=== PATIENT | female | born 1960 | race Caucasian/White ===

== ENCOUNTER → 2017-03-02 | Outpatient (REF) | payer BC ==
[2017-03-02 17:39] LABS: BLOOD UREA NITROGEN 12 MG/DL (7-18); GLOMERULAR FILTRATION RATE > 60.0 (>51)
== END ==
LOC: M LABDRAW1 15:48
PROVIDERS: ATTEND Physical Medicine & Rehabilitation
DX: M51.26 Other intervertebral disc displacement, lumbar region (principal)

== ENCOUNTER → 2017-03-25 | Outpatient (CLI) | payer BC ==
--- NOTE | 2017-03-25 14:33 | REP ---
Whole body radionuclide bone scan: The studies performed with intravenous injection of 21 mCi of technetium 99m labeled MDP. There are no comparison studies. Whole body imaging is performed. This is accompanied by oblique views of the ribs and pelvis and lateral views of the calvarium, knees and ankles. There is no abnormal calvarial uptake. There are small foci of slightly increased uptake at the costovertebral junctions of the approximate 8th and 9th ribs on the right and in the right pedicle of the approximate L1 vertebra. There is a degenerative pattern of uptake in the shoulders. No unusual uptake in the pelvis or hips. There is a small focus of uptake in the right knee , possibly in the patella, likely degenerative. There is a degenerative pattern of uptake in the feet. There is a radiolabeling of the bladder. There is uptake in the pubic symphysis. Impression: There are small foci of slightly increased uptake at the costovertebral junctions of the approximate 8th and 9th ribs on the right and in the right pedicle of the approximate L1 vertebra. There is a degenerative pattern of uptake in the shoulders and sternoclavicular joints bilaterally. There is a small focus of uptake in the right knee, likely degenerative. There is a degenerative pattern of uptake in the feet bilaterally. There is uptake in the pubic symphysis. Signed by Jasvir Zamora MD 03/25/2017 02:24 P
== END ==
LOC: M RAD 10:09
PROVIDERS: ATTEND Physician Assistant
DX: M51.16 Intervertebral disc disorders with radiculopathy, lumbar region (principal)

== ENCOUNTER 2017-06-06 09:51 | Inpatient (IN) | payer BC ==
--- NOTE | 2017-06-01 06:42 | HPE ---
DATE OF ADMISSION: 06/06/2017 CHIEF COMPLAINT: Low back pain and radiculopathy with spinal stenosis. HISTORY OF PRESENT ILLNESS: This is a pleasant 57-year-old female with progressively worsening low back pain and left lower extremity myelopathy. She has failed to improve with conservative treatment. She is currently wearing an ankle-foot orthosis (AFO) on her ankle on the left. She has elected for surgery for her continued symptoms. She has pain with weightbearing activities and her activities of daily living. Nerve conduction studies reflected severe subacute L5 radiculopathy and more moderate S1 radiculopathy on the left side. She has consented for unilateral laminectomy on the left of L4, L5, and S1 with decompression of the canal and lateral recess at L4 and L5 and L5-S1 by Dr. Dmitry Velasco. Medical optimization was performed by Dr. Jem Baptiste. ALLERGIES: LATEX. CURRENT MEDICATIONS: - Toujeo Solostar 115 units at bedtime - atorvastatin calcium 20 mg once a day - metformin HCL ER 1000 mg one twice a day - Lexapro 20 mg once a day - acetaminophen 500 mg two by mouth every six hours as needed PAST MEDICAL HISTORY: Includes diabetes, hypertension and high cholesterol. PAST SURGICAL HISTORY: Includes cyst removal from her left foot, cholecystectomy, cyst removal from the left wrist, and a right rotator cuff repair. 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 Does not smoke or drink. FAMILY HISTORY: Noncontributory. REVIEW OF SYSTEMS: This patient denies chest pain, heart palpitations, cough, wheezing, difficulty breathing and shortness of breath. She denies abdominal pain, nausea, vomiting, diarrhea or constipation. She denies recent upper respiratory infection or urinary tract infection symptoms. She does complain of persistent pain in her back and weakness in her left leg. PHYSICAL EXAMINATION: GENERAL: She is well-nourished, well-developed in no acute distress, alert female patient. She walks with a significant limp favoring the left lower extremity. She uses an AFO. VITAL SIGNS: She is 4 feet 11, weighs 165 pounds, with a temperature of 97.9, blood pressure 140/86, pulse of 76 and respirations of 12. NECK: Was supple without adenopathy or jugular venous distension. There were no carotid bruits appreciated upon auscultation. LUNGS: Clear to auscultation without rales or wheeze. HEART: Regular rate and rhythm. ABDOMEN: Bowel sounds were present. BACK: Inspection of the back revealed intact skin without erythema, edema or ecchymosis. There were no step-offs. LABORATORY DATA: None taken IMPRESSION: Symptomatic degenerative disc disease, spondylosis and spinal stenosis with radiculopathy and myelopathy the left lower extremity. PLAN The patient is consented for a left unilateral laminectomy at L4, L5 and S1, with decompression of the canal and lateral recess of L4-5 and L5-S1 with retrieval of any disc material if able at L5-S1. This will be performed by Dr. Dmitry Velasco.
[~2017-06-06] VITALS: Ht 149.9 cm; Wt 75.0 kg
[2017-06-06] MEDS: ATORVASTATIN 20 MG TAB PO SCH (09:00)
[2017-06-06] MEDS: ESCITALOPRAM OXALATE 10 MG TAB (LEXAPRO) PO SCH (09:00)
[~2017-06-06 09:51] MED LIST: INSUHUMDS SC; LEXA1TAB PO; LOSA100T5 PO; METF10004 PO; TOUJ1.2I SC; TYLE325T5 PO; VASC1CAP2 PO
[2017-06-06] MEDS ORDERED: CelecoXIB (CeleBREX) 100 MG CAP PO ONE (10:15)
[2017-06-06] MEDS ORDERED: LIDOCAINE 1% MDV 20ML VIAL SC PRN (10:15)
[2017-06-06] MEDS ORDERED: PERCOCET 5MG/325MG TAB PO ONE (10:15)
[2017-06-06] MEDS ORDERED: LR 1,000 ML IV ONE (10:15)
[2017-06-06] MEDS ORDERED: ONDANSETRON 4MG/2ML VIAL (J2405) As Ordered ONE (12:07)
[2017-06-06] MEDS ORDERED: fentaNYL 250 MCG/5 ML INJECTION (J3010) As Ordered ONE (12:07)
[2017-06-06] MEDS ORDERED: LIDOCAINE 2% INJ 100 MG/5 ML SDV (FOR ANES.) As Ordered ONE (12:07)
[2017-06-06] MEDS ORDERED: PROPOFOL 200 MG/20 ML VIAL As Ordered ONE (12:07)
[2017-06-06] MEDS ORDERED: ROCURONIUM BROMIDE 50 MG/5 ML VIAL/SYRINGE As Ordered ONE (12:07)
[2017-06-06] MEDS ORDERED: dexameTHASONE 4 MG/ML 1ML VIAL (J1100) As Ordered ONE (12:07)
[2017-06-06] MEDS ORDERED: MIDAZOLAM INJ 2 MG/2 ML VIAL (J2250) As Ordered ONE (12:08)
[2017-06-06] MEDS ORDERED: THROMBIN SOLN 20,000 UNITS KIT As Ordered ONE (13:40)
[2017-06-06] MEDS ORDERED: BACITRACIN PWD 50,000 UNITS VIAL As Ordered ONE (13:40)
[2017-06-06] MEDS ORDERED: BUPIVACAINE/EPIN 0.25% 30 ML VIAL As Ordered ONE (13:40)
[2017-06-06] MEDS ORDERED: PHENYLephrine HCL 500 MCG/5 ML (100MCG/ML) SYRINGE (J2370) As Ordered ONE (16:03)
[2017-06-06] MEDS ORDERED: GLYCOPYRROLATE INJ 0.2 MG/ML 2 ML VIAL As Ordered ONE (16:03)
[2017-06-06] MEDS ORDERED: ePHEDrine SULFATE 25 MG/5 ML(5MG/ML) SYRINGE As Ordered ONE (16:03)
[2017-06-06] MEDS ORDERED: HYDROmorphone HCL 2 MG/ML 1ML VIAL (J1170) As Ordered ONE (16:03)
[2017-06-06] MEDS ORDERED: NEOSTIGMINE 1MG/ML 5 ML SYRINGE (J2710) As Ordered ONE (16:03)
[2017-06-06] MEDS ORDERED: PHENYLEPHRINE INJ 10MG/ML VIAL (J2370) As Ordered ONE (16:21)
--- NOTE | 2017-06-06 17:35 | REP ---
LUMBAR SPINE, ONE VIEW: HISTORY: Spinal surgery. A single portable lateral radiograph was obtained. A metal probe is present overlying the neural arch at the L5-S1 level. Signed by Mike Butler MD 06/06/2017 06:18 P
[2017-06-06] MEDS ORDERED: LR 1,000 ML IV SCH (18:00)
[2017-06-06] MEDS ORDERED: MORPHINE 2 MG/ML 1ML SYRINGE IV PRN ×2 (18:00)
[2017-06-06] MEDS ORDERED: PERCOCET 5MG/325MG TAB PO PRN ×2 (18:00)
[2017-06-06] MEDS ORDERED: ONDANSETRON 4MG/2ML VIAL (J2405) IV PRN ×2 (18:00)
[2017-06-06] MEDS ORDERED: fentaNYL 100 MCG/2 ML INJECTION (J3010) IV PRN (18:00)
[2017-06-06] MEDS ORDERED: HYDROmorphone HCL 1 MG/ML SYRINGE (J1170) IV PRN (18:00)
[2017-06-06] MEDS ORDERED: MEPERIDINE INJ 25 MG/ML VIAL (J2175) IV PRN (18:00)
[2017-06-06 18:32] VITALS: BP 156/69
[2017-06-06] MEDS ORDERED: ACETAMINOPHEN TAB 650MG DOSE (2X325MG) PO PRN (19:00)
[2017-06-06 20:00] VITALS: BP 158/70
[2017-06-06] MEDS ORDERED: HumaLOG INSULIN (NovoLOG) PER UNIT SC SCH (21:00)
[2017-06-06] MEDS: D5W/0.45% SODIUM CHLORIDE 1,000 ML IV SCH (21:08)
[2017-06-06 22:00] VITALS: BP 166/70
[2017-06-07] VITALS: BP 164/77
[2017-06-07 02:00] VITALS: BP 170/82
[2017-06-07 04:00] VITALS: BP 160/79
[2017-06-07 06:00] VITALS: BP 153/80
[2017-06-07] MEDS ORDERED: HumaLOG INSULIN (NovoLOG) PER UNIT SC SCH (07:30)
[2017-06-07] MEDS: D5W/0.45% SODIUM CHLORIDE 1,000 ML IV SCH (08:20)
[2017-06-07] MEDS: ATORVASTATIN 20 MG TAB PO SCH (09:00)
[2017-06-07] MEDS: ESCITALOPRAM OXALATE 10 MG TAB (LEXAPRO) PO SCH (09:39)
--- NOTE | 2017-06-08 09:25 | RO ---
DATE OF PROCEDURE: 06/06/2017 PREPROCEDURE DIAGNOSIS: Lumbar spinal stenosis with left lower extremity radiculopathy. POSTPROCEDURE DIAGNOSIS: Lumbar spinal stenosis with left lower extremity radiculopathy. PROCEDURE: Left unilateral laminectomy at L5 and extending to additional level, left unilateral laminectomy L4 and left unilateral laminectomy S1, decompressed lateral recess exiting traversing nerve roots at L4-5-1. SURGEON: Dmitry Velasco MD STEAM SERVICE INSPECTOR: Dionisio Givens PA-C ESTIMATED BLOOD LOSS: Less than 100 mL, replaced with crystalloid. COMPLICATIONS: No complications. INDICATIONS: Left lower extremity neurogenic claudication/radicular pain and weakness of the left ankle extension, requiring the use an AFO. MRI evidence of the above pathology. Consent reviewed in detail with the patient, including jemima discussion of the pathology involved, the procedure proposed, alternatives , including doing nothing and risks, including, but not limited to pain, failure, infection, bleeding blood loss, incomplete relief of symptoms, need for additional surgery and other issues. The patient agrees to proceed. DESCRIPTION OF PROCEDURE: Site and side verified in the holding area, brought to the operating room. General endotracheal anesthesia was administered. Then positioned on the Ytler frame for exposure of the lumbar spine for decompression. I assisted with positioning. Next, once I and the bet taker were comfortable with the patient's positioning , we began the operative procedure. Time-out was accomplished. Next, incision was based on palpation of landmarks.. Incision was outlined with a marking pen infiltrated with 0.25% Marcaine with epinephrine. I conducted the procedure using 3.5 loupe magnification at the onset, followed by use of the operating microscope. Next, the incision was made with 10 blade, developed down through skin and subcuticular tissues. Mr. Givens assisted with retraction and evacuation of Bovie smoke. The dissection continued to the posterior lumbar fascia. The patient had significant body habitus concentrated in the posterior area. Next, posterior lumbar fascia was divided off of the spinous processes of L5, S1 and L4. Dissection continued along the lamina of L5. Next, drill was utilized to drill a divot in the lamina of L5. The Nabeel- Umesh retractor was placed in the divot. At this stage, we obtained a cross-table lateral x-ray to verify level. Next, once this was accomplished, I removed posterior lamina of L5 using Leksell and L4 using Leksell. Next, the operating microscope was draped and brought in for the remaining portions of the procedure. Next, this facilitated continued participation of Mr. Givens in the capacity of cutting table operator first, utilizing nerve retractors and suction, as well as my safe use of the high-speed bur. The high-speed bur was utilized to implement a left unilateral laminectomy of L5, undercutting spinous process of L5, extending inferiorly to the superior lamina of S1 and superiorly to the inferior lamina of L4. Next, once the lamina of L5 had been removed, I was then able to utilize #2 and #3 Kerrisons, as well as pituitaries to remove hypertrophied ligamentum flavum. Significant lateral recess stenosis was accomplished, especially at L5-S1 on the left side. This was decompressed using #2 Kerrisons. The disc bulge at L5-S1 seemed to be more of a hard disc bulge and decompression of the lateral recess and removal of the ligamentum flavum freed the S1 nerve root significantly. Continuing through the lateral recess of neural foramina at L5-S1, I also removed soft tissues extending superiorly to the pedicle of L5. Ligamentum flavum was removed L4-5, extending to the lamina of L4, significantly decompressing the traversing 5th row at that level. Next, the neural foramina were palpated using curved curette and found to be patent. Irrigation was accomplished. Retractors were removed. I irrigated with high con. We closed the wound with interrupted stitch, including closure of the posterior lumbar fascia, Carla's fascia, deep dermis. Pernio dressing utilized on skin. Next, temporary ABD was placed over the wound at that point. She was log-rolled to the hospital bed, extubated, moved to the recovery room in good condition. For further details, please refer to the medical record. ESAU
--- NOTE | 2017-06-10 11:51 | DSES ---
DATE OF ADMISSION: 06/06/2017 DATE OF DISCHARGE: 06/07/2017 HISTORY OF PRESENT ILLNESS: This is a pleasant, 57-year-old female with worsening low back discomfort and left leg radiculopathy. She failed to improve with conservative treatment and she has consented for unilateral laminectomy on the left at L4-5, L5-S1 with decompression of canal and lateral recess at L4-L5, L5-S1 per Dr. Dmitry Vleasco. Medical optimization per Dr. Heron Baptiste. MRI and EMG findings were consistent with radiculopathy, spinal stenosis. Operation performed was a left unilateral laminectomy at L5 and extending to additional level left unilateral laminectomy L4 and left unilateral laminectomy S1 with decompression of the lateral recess exiting traversing nerve roots at L4-5, L5-S1. HOSPITAL COURSE: Under general anesthesia. the patient uneventfully underwent left unilateral laminectomy at L4, L5 and S1 with decompression of the lateral recess exiting traversing nerve roots at L4-L5, L5-S1. The patient was returned to recovery comfortable. Our hospital team felt comfortable discharging the patient on 06/07/2017 with the following postoperative instructions including no carrying or lifting, weightbearing with a rolling walker. Diet is regular. Percocet as needed, pain. Keep dressing dry and clean. Followup will be in 4-7 days for dressing change wound check and then Monocryl stitch removal in 12-14 days. Postoperative spine protocol per Dr. Dmitry Velasco. The patient is urged to contact our office with any increased redness, drainage, bleeding, pain, increased radiating leg discomfort, bowel or bladder problems, starting, stopping, fever greater than 101 or any other further concerns. ESAU
== END 2017-06-07 11:10 | disposition home or self-care (01) | DRG 310 ==
LOC: M OR 09:51 → M MS5PR 18:35
PROVIDERS: ADMIT Orthopaedic Surgery; ATTEND Orthopaedic Surgery
PROC: 0QB00ZZ Excision of Lumbar Vertebra, Open Approach (ICD-10-PCS; principal; 2017-06-06 12:00)
DX: M48.06 Spinal stenosis, lumbar region (principal); M51.06 Intervertebral disc disorders with myelopathy, lumbar region; I10 Essential (primary) hypertension; Z79.899 Other long term (current) drug therapy; E11.9 Type 2 diabetes mellitus without complications; E78.00 Pure hypercholesterolemia, unspecified

== ENCOUNTER 2017-12-15 07:00 | Day surgery (SDC) | payer BC ==
[2017-12-15] MEDS: PHENYLEPHRINE 2.5% OPHTH SOL 2ML OS (08:02)
[2017-12-15] MEDS: TROPICAMIDE 1% OPHTH SOLN 2ML OS (08:02)
[2017-12-15] MEDS: OFLOXACIN 0.3 % (OCUFLOX) OPTH SOL 5ML OS (08:02)
[2017-12-15 08:03] LABS: BEDSIDE GLUCOSE 87 MG/DL (70-105)
[2017-12-15] MEDS: PROPARACAINE 0.5% OPHTH SOL 15ML OS (08:03)
[2017-12-15] MEDS ORDERED: fentaNYL 100 MCG/2 ML INJECTION (J3010) As Ordered (08:15)
[2017-12-15] MEDS ORDERED: MIDAZOLAM INJ 2 MG/2 ML VIAL (J2250) As Ordered (08:15)
[2017-12-15] MEDS: ACETYLCHOLINE OPHTH SOLN 1% 2ML (MIOCHOL-E) As Ordered (08:24)
[2017-12-15] MEDS: LIDOCAINE 0.75%/EPINEPHRINE 0.025% IN BSS 1ML SYR INTRACAMERAL (OR ONLY) As Ordered (08:24)
[2017-12-15] MEDS: POVIDONE-IODINE 5% OPHTH PREP SOL 30ML As Ordered (08:24)
[2017-12-15] MEDS: BALANCED SALT IRRIGATION SOLUTION 500ML BAG (FOR OR EYE MACHINE) As Ordered (08:24)
[2017-12-15] MEDS: CEFUROXIME 1MG/0.1ML INTRACAMERAL INJ As Ordered ×2 (08:24→08:25)
[2017-12-15] MEDS: DUOVISC (0.50ML VISCOAT/0.55ML PROVISC) OPHTH KIT As Ordered (08:24)
== END 2017-12-15 09:25 | disposition home or self-care (01) ==
LOC: M SDC 07:00
DX: H25.12 Age-related nuclear cataract, left eye (principal); E10.9 Type 1 diabetes mellitus without complications; K21.9 Gastro-esophageal reflux disease without esophagitis; M12.9 Arthropathy, unspecified; M54.9 Dorsalgia, unspecified; I10 Essential (primary) hypertension; E78.5 Hyperlipidemia, unspecified; F41.9 Anxiety disorder, unspecified; J45.990 Exercise induced bronchospasm; F32.9 Major depressive disorder, single episode, unspecified; Z91.040 Latex allergy status; Z79.899 Other long term (current) drug therapy; Z79.4 Long term (current) use of insulin; Z79.84 Long term (current) use of oral hypoglycemic drugs; Z98.51 Tubal ligation status
CPT/HCPCS: 66984

== ENCOUNTER → 2022-01-18 | Outpatient (CLI) | payer BC, OTHER ==
[~2022-01-18] MED LIST changes: +ATOR1TAB21 PO; +CARV6.25 PO; +FARX1TAB3 PO; +LEXA1TAB2 PO; +LOSA50TA28 PO; +MAGN200T PO; +SPIR-10 PO
== END ==
LOC: M LABSMTC 11:39
PROVIDERS: ATTEND Anesthesiology
DX: Z01.818 Encounter for other preprocedural examination (principal); Z11.52 Encounter for screening for COVID-19

== ENCOUNTER 2022-01-22 06:33 | Day surgery (SDC) | payer OTHER ==
[~2022-01-22] VITALS: Ht 149.9 cm; Wt 72.6 kg
[~2022-01-22 06:33] MED LIST changes: +PROPARACAINE 0.5% OPHTH SOL 15ML OD ONE; +TROPICAMIDE 1% OPHTH SOLN 2ML OD SCH
[2022-01-22] MEDS ORDERED: CEFUROXIME 1MG/0.1ML INTRACAMERAL INJ As Ordered ONE (06:45)
[2022-01-22] MEDS ORDERED: BSS IRR 500ML/OMIDRIA 4ML IRR BAG (OR ONLY) As Ordered ONE (06:45)
[2022-01-22] MEDS ORDERED: LIDOCAINE 1% SDV 5ML VIAL As Ordered ONE (06:55)
[2022-01-22] MEDS: PHENYLEPHRINE 2.5% OPHTH SOL 2ML OD SCH ×2 (06:59→07:06)
[2022-01-22] MEDS: OFLOXACIN 0.3 % (OCUFLOX) OPTH SOL 5ML OD SCH ×2 (07:00→07:05)
[2022-01-22] MEDS ORDERED: MIDAZOLAM INJ 2MG/2ML VIAL (J2250 PER 1MG) As Ordered ONE (07:03)
[2022-01-22] MEDS ORDERED: TRYPAN BLUE 0.06 % 2.25 ML OPHTH SYR (VISIONBLUE) As Ordered ONE (07:03)
[2022-01-22 08:55] VITALS: BP 120/63
== END 2022-01-22 09:25 | disposition home or self-care (01) ==
LOC: M SDC 06:33
PROVIDERS: ATTEND Ophthalmology
DX: H25.89 Other age-related cataract (principal); H21.561 Pupillary abnormality, right eye; I10 Essential (primary) hypertension; E11.9 Type 2 diabetes mellitus without complications; E78.5 Hyperlipidemia, unspecified; K21.9 Gastro-esophageal reflux disease without esophagitis; M21.372 Foot drop, left foot; R20.0 Anesthesia of skin; M19.90 Unspecified osteoarthritis, unspecified site; L30.9 Dermatitis, unspecified; F41.9 Anxiety disorder, unspecified; G43.909 Migraine, unspecified, not intractable, without status migrainosus; J45.909 Unspecified asthma, uncomplicated; Z79.899 Other long term (current) drug therapy; Z79.84 Long term (current) use of oral hypoglycemic drugs; Z79.4 Long term (current) use of insulin; Z91.040 Latex allergy status
CPT/HCPCS: 66982; J0697; J1097; J2250; V2632

== ENCOUNTER → 2022-10-18 | Outpatient (REF) | payer OTHER, MEDICAID ==
[~2022-10-18] MED LIST changes: -PROPARACAINE 0.5% OPHTH SOL 15ML OD ONE; -TROPICAMIDE 1% OPHTH SOLN 2ML OD SCH
== END ==
LOC: M SFHCDERM 17:15
PROVIDERS: ATTEND Nurse Practitioner Family
DX: D48.9 Neoplasm of uncertain behavior, unspecified (principal); A66.3 Hyperkeratosis of yaws

== ENCOUNTER → 2023-01-18 | Outpatient (CLI) | payer OTHER, MEDICAID | LOC: M SOG 09:33 | PROVIDERS: ATTEND Physician Assistant | DX: M79.641 Pain in right hand (principal) ==

== ENCOUNTER 2023-02-11 06:55 | Day surgery (SDC) | payer OTHER ==
[~2023-02-11] VITALS: Ht 149.9 cm; Wt 74.3 kg
[~2023-02-11 06:55] MED LIST changes: +BASA100I SC; +OMEP40CA4 PO; +PIOG1TAB36 PO
[2023-02-11] MEDS ORDERED: LIDOCAINE W/EPINEPHRINE 1% 20ML VIAL XX ONE (07:30)
[2023-02-11] MEDS ORDERED: SODIUM BICARBONATE 8.4% INJ 50MEQ 50ML VIAL XX ONE (07:30)
[2023-02-11] MEDS ORDERED: LIDOCAINE 1% MDV 20ML VIAL As Ordered ONE (08:16)
[2023-02-11] MEDS ORDERED: BACITRACIN OINTMENT 30GM TUBE As Ordered ONE (08:20)
[2023-02-11] MEDS ORDERED: BUPIVACAINE HCL 0.25% 30ML VIAL As Ordered ONE (08:20)
[2023-02-11] MEDS ORDERED: LIDOCAINE 1% MDV 20ML VIAL INJ ONE (08:20)
[2023-02-11 09:23] VITALS: BP 170/73
== END 2023-02-11 09:40 | disposition home or self-care (01) ==
LOC: M SDC 06:55
PROVIDERS: ATTEND Orthopaedic Surgery Hand Surgery
DX: L60.8 Other nail disorders (principal); I11.0 Hypertensive heart disease with heart failure; I50.9 Heart failure, unspecified; E78.00 Pure hypercholesterolemia, unspecified; E11.9 Type 2 diabetes mellitus without complications; K21.9 Gastro-esophageal reflux disease without esophagitis; Z86.19 Personal history of other infectious and parasitic diseases; M21.372 Foot drop, left foot; R20.0 Anesthesia of skin; M19.90 Unspecified osteoarthritis, unspecified site; F41.9 Anxiety disorder, unspecified; G43.909 Migraine, unspecified, not intractable, without status migrainosus; Z91.040 Latex allergy status; Z79.899 Other long term (current) drug therapy; Z79.4 Long term (current) use of insulin; Z79.84 Long term (current) use of oral hypoglycemic drugs

== ENCOUNTER → 2024-07-30 | Outpatient (CLI) | payer MEDICARE ==
[2024-07-30 13:04] LABS: ALBUMIN 3.3 G/DL (3.2-5.2); ALKALINE PHOSPHATASE 106 U/L (46-116); ALT/SGPT 23 U/L (7.0-40); AST/SGOT 14 U/L (<34); BILIRUBIN,TOTAL 0.3 MG/DL (0.3-1.2); BLOOD UREA NITROGEN 15 MG/DL (9-23); CALCIUM LEVEL 9.7 MG/DL (8.3-10.6); CARBON DIOXIDE LEVEL 28 MMOL/L (20-31); CHLORIDE LEVEL 105 MMOL/L (98-107); CREATININE FOR GFR 0.54 MG/DL (0.55-1.30); GLOMERULAR FILTRATION RATE > 60.0 (>45); GLUCOSE, FASTING 176 MG/DL (74-106); POTASSIUM SERUM 4.7 MMOL/L (3.5-5.1); SODIUM LEVEL 137 MMOL/L (136-145)
[2024-07-30 13:06] LABS: BASO # 0.1 10^3/uL (0.0-0.2); BASO % 0.8 % (0.0-1.0); EOS # 0.3 10^3/uL (0.0-0.5); EOS % 3.3 % (0.0-3.0); HEMATOCRIT 42.2 % (36.0-47.0); LYMPH # 2.5 10^3/uL (1.5-5.0); LYMPH % 26.8 % (24.0-44.0); MEAN CORPUSCULAR HEMOGLOBIN 25.5 pg (27.0-33.0); MEAN CORPUSCULAR HGB CONC 30.8 g/dl (32.0-36.5); MEAN CORPUSCULAR VOLUME 82.9 fl (80.0-96.0); MONO # 0.5 10^3/uL (0.0-0.8); MONO % 5.5 % (2.0-8.0); NEUTROPHILS # 5.8 10^3/uL (1.5-8.5); NEUTROPHILS % 63.2 % (36.0-66.0); PLATELET COUNT, AUTOMATED 329 10^3/uL (150-450); RED BLOOD COUNT 5.09 10^6/uL (4.00-5.40); WHITE BLOOD COUNT 9.2 10^3/uL (4.0-10.0)
== END ==
LOC: M PLALAB 09:57
PROVIDERS: ATTEND Registered Nurse
DX: I11.0 Hypertensive heart disease with heart failure (principal); I50.9 Heart failure, unspecified

== ENCOUNTER → 2024-08-23 | Outpatient (CLI) | payer MEDICARE | LOC: M PLAIMG 09:27 | PROVIDERS: ATTEND Registered Nurse | DX: I08.0 Rheumatic disorders of both mitral and aortic valves (principal); I50.32 Chronic diastolic (congestive) heart failure; I11.9 Hypertensive heart disease without heart failure; I45.10 Unspecified right bundle-branch block ==

== ENCOUNTER 2025-02-15 15:52 | Emergency (ER) | payer MEDICARE ==
[~2025-02-15] VITALS: Ht 149.9 cm; Wt 70.9 kg
[2025-02-15 16:59] LABS: BASO # 0.1 10^3/uL (0.0-0.2); BASO % 0.6 % (0.0-1.0); EOS # 0.4 10^3/uL (0.0-0.5); EOS % 4.1 % (0.0-3.0); HEMATOCRIT 40.4 % (36.0-47.0); HEMOGLOBIN 12.9 g/dl (12.0-15.5); LYMPH # 2.1 10^3/uL (1.5-5.0); LYMPH % 23.7 % (24.0-44.0); MEAN CORPUSCULAR HEMOGLOBIN 25.5 pg (27.0-33.0); MEAN CORPUSCULAR HGB CONC 31.9 g/dl (32.0-36.5); MEAN CORPUSCULAR VOLUME 79.8 fl (80.0-96.0); MONO # 0.5 10^3/uL (0.0-0.8); MONO % 5.8 % (2.0-8.0); NEUTROPHILS # 5.8 10^3/uL (1.5-8.5); NEUTROPHILS % 65.5 % (36.0-66.0); PLATELET COUNT, AUTOMATED 308 10^3/uL (150-450); RED BLOOD COUNT 5.06 10^6/uL (4.00-5.40); WHITE BLOOD COUNT 8.9 10^3/uL (4.0-10.0)
[2025-02-15 17:15] LABS: LIPASE 39 U/L (12-53)
[2025-02-15 17:18] LABS: ALBUMIN 3.3 G/DL (3.2-5.2); ALKALINE PHOSPHATASE 89 U/L (35-104); ALT/SGPT 24 U/L (7.0-40); AST/SGOT 16 U/L (<34); BILIRUBIN,DIRECT < 0.1 MG/DL (<0.4); BILIRUBIN,TOTAL 0.3 MG/DL (0.3-1.2); BLOOD UREA NITROGEN 17 MG/DL (9-23); CALCIUM LEVEL 9.3 MG/DL (8.3-10.6); CARBON DIOXIDE LEVEL 27 MMOL/L (20-31); CHLORIDE LEVEL 105 MMOL/L (98-107); CPK CREATINE PHOSPHOKINASE 165 U/L (34-145); CREATININE FOR GFR 0.55 MG/DL (0.55-1.30); GLOMERULAR FILTRATION RATE > 90.0 (>45); GLUCOSE, FASTING 171 MG/DL (74-106); MB/CK RELATIVE INDEX 3.03 (< OR =4); POTASSIUM SERUM 4.3 MMOL/L (3.5-5.1); SODIUM LEVEL 142 MMOL/L (136-145); TOTAL PROTEIN 7.2 G/DL (5.7-8.2)
[2025-02-15 17:19] LABS: FREE T4 1.07 NG/DL (0.89-1.76)
[2025-02-15 18:07] LABS: CK-MB VALUE MASS 3.4 NG/ML (<3.6); MB/CK RELATIVE INDEX 2.41 (< OR =4)
[2025-02-15] MEDS: LOSARTAN 50MG TABLET PO ONE (19:56)
[2025-02-15] MEDS ORDERED: LOSARTAN 50MG TABLET PO SCH (20:00)
[2025-02-15 20:05] LABS: MB/CK RELATIVE INDEX 2.77 (< OR =4)
[2025-02-15] MEDS ORDERED: HEPARIN SOD (PORCINE) 5000UNITS/ML 1ML VIAL/SYRINGE IV PRN (20:30)
[2025-02-15 20:50] VITALS: BP 182/82
[2025-02-15] MEDS: NITROGLYCERIN 2% OINT 1 GM *U/D* PKT TOP ONE (20:50)
[2025-02-15] MEDS: HEPARIN DRIP 25,000 UNITS in IV 1 EA IV SCH (20:53)
[2025-02-15 21:45] VITALS: BP 135/71; TEMP 96.3; O2SAT 96
== END 2025-02-15 21:54 | disposition short-term general hospital (02) ==
LOC: M ED 15:52
DX: I21.4 Non-ST elevation (NSTEMI) myocardial infarction (principal); I10 Essential (primary) hypertension; E11.9 Type 2 diabetes mellitus without complications; E78.5 Hyperlipidemia, unspecified; K21.9 Gastro-esophageal reflux disease without esophagitis; F41.9 Anxiety disorder, unspecified; Z98.61 Coronary angioplasty status; Z79.4 Long term (current) use of insulin; Z79.899 Other long term (current) drug therapy; Z91.040 Latex allergy status

== ENCOUNTER → 2025-05-20 | Outpatient (CLI) | payer MEDICARE ==
[2025-05-20 11:21] LABS: ALT/SGPT 22 U/L (7.0-40); AST/SGOT 21 U/L (<34); CHOLESTEROL LEVEL 146 MG/DL (<200); CHOLESTEROL RISK RATIO 3.54 (<5); LDL CHOLESTEROL 67.2 MG/DL (<100); NON-HDL-C 104.8 MG/DL; TRIGLYCERIDES LEVEL 188 MG/DL (<150)
== END ==
LOC: M PLALAB 08:57
PROVIDERS: ATTEND Registered Nurse
DX: I25.10 Atherosclerotic heart disease of native coronary artery without angina pectoris (principal)

== ENCOUNTER 2025-08-08 01:22 | Emergency (ER) | payer MEDICARE, OTHER ==
[2025-08-08 03:48] LABS: ALT/SGPT 31 U/L (7.0-40); AST/SGOT 24 U/L (<34); CALCIUM LEVEL 9.8 MG/DL (8.3-10.6); CARBON DIOXIDE LEVEL 28 MMOL/L (20-31); CHLORIDE LEVEL 103 MMOL/L (98-107); CK-MB VALUE MASS 5.2 NG/ML (<3.6); CPK CREATINE PHOSPHOKINASE 177 U/L (34-145); CREATININE FOR GFR 0.63 MG/DL (0.55-1.30); FREE T4 1.36 NG/DL (0.89-1.76); GLOMERULAR FILTRATION RATE > 90.0 (>45); MAGNESIUM LEVEL 2.0 MG/DL (1.8-2.4); MB/CK RELATIVE INDEX 2.93 (< OR =4); POTASSIUM SERUM 4.0 MMOL/L (3.5-5.1); SODIUM LEVEL 141 MMOL/L (136-145)
[2025-08-08 03:49] LABS: BASO # 0.1 10^3/uL (0.0-0.2); BASO % 0.9 % (0.0-1.0); EOS # 0.3 10^3/uL (0.0-0.5); EOS % 2.4 % (0.0-3.0); LYMPH # 2.5 10^3/uL (1.5-5.0); LYMPH % 23.0 % (24.0-44.0); MONO # 0.9 10^3/uL (0.0-0.8); MONO % 8.0 % (2.0-8.0); NEUTROPHILS # 7.2 10^3/uL (1.5-8.5); NEUTROPHILS % 65.4 % (36.0-66.0); PLATELET COUNT, AUTOMATED 305 10^3/uL (150-450)
[2025-08-08 06:24] LABS: CK-MB VALUE MASS 3.6 NG/ML (<3.6)
[2025-08-08 06:25] LABS: CPK CREATINE PHOSPHOKINASE 134.0 U/L (34-145); MB/CK RELATIVE INDEX 2.68 (< OR =4)
[2025-08-08 06:49] VITALS: BP 180/94; TEMP 99.3; O2SAT 97
== END 2025-08-08 06:55 | disposition home or self-care (01) ==
LOC: M ED 01:22
DX: R07.89 Other chest pain (principal); I25.10 Atherosclerotic heart disease of native coronary artery without angina pectoris; I25.2 Old myocardial infarction; E11.9 Type 2 diabetes mellitus without complications; I10 Essential (primary) hypertension; E78.5 Hyperlipidemia, unspecified; Z98.61 Coronary angioplasty status; F17.200 Nicotine dependence, unspecified, uncomplicated; Z79.4 Long term (current) use of insulin; Z79.899 Other long term (current) drug therapy; Z91.040 Latex allergy status

== ENCOUNTER 2025-08-09 21:11 | Emergency (ER) | payer MEDICARE, OTHER ==
[~2025-08-09] VITALS: Ht 160 cm; Wt 70.5 kg
[2025-08-09 21:43] LABS: BASO # 0.1 10^3/uL (0.0-0.2); BASO % 0.6 % (0.0-1.0); EOS # 0.2 10^3/uL (0.0-0.5); EOS % 2.0 % (0.0-3.0); LYMPH # 2.3 10^3/uL (1.5-5.0); LYMPH % 21.7 % (24.0-44.0); MONO # 0.8 10^3/uL (0.0-0.8); MONO % 7.7 % (2.0-8.0); NEUTROPHILS # 7.3 10^3/uL (1.5-8.5); NEUTROPHILS % 67.8 % (36.0-66.0); PLATELET COUNT, AUTOMATED 298 10^3/uL (150-450)
[2025-08-09 21:55] LABS: INR 0.9
[2025-08-09 22:07] LABS: CK-MB VALUE MASS 10.3 NG/ML (<3.6)
[2025-08-09 22:09] LABS: CALCIUM LEVEL 8.8 MG/DL (8.3-10.6); CARBON DIOXIDE LEVEL 27 MMOL/L (20-31); CHLORIDE LEVEL 105 MMOL/L (98-107); CPK CREATINE PHOSPHOKINASE 190 U/L (34-145); CREATININE FOR GFR 0.68 MG/DL (0.55-1.30); GLOMERULAR FILTRATION RATE > 90.0 (>45); MB/CK RELATIVE INDEX 5.42 (< OR =4); POTASSIUM SERUM 4.1 MMOL/L (3.5-5.1); SODIUM LEVEL 140 MMOL/L (136-145)
[2025-08-09 22:11] LABS: FREE T4 1.33 NG/DL (0.89-1.76)
[2025-08-09] MEDS: MORPHINE 4 MG/ML 1 ML VIAL IV PRN (22:47)
[2025-08-09] MEDS: ASPIRIN 81 MG CHEWABLE TABLET PO ONE (22:47)
[2025-08-09] MEDS ORDERED: HEPARIN SOD 5000 UNITS/ML 1 ML VIAL/SYRINGE IV PRN (22:50)
[2025-08-09] MEDS ORDERED: ISOVUE-370 76% 100 ML VIAL As Ordered ONE (22:55)
[2025-08-09] MEDS: ONDANSETRON 4MG 2ML VIAL IV ONE (23:05)
[2025-08-09] MEDS: HEPARIN SOD 5000 UNITS/ML 1 ML VIAL/SYRINGE IV ONE (23:07)
[2025-08-09] MEDS: HEPARIN DRIP 25,000 UNITS in IV 1 EA IV SCH (23:07)
[2025-08-09 23:19] LABS: CK-MB VALUE MASS 9.0 NG/ML (<3.6)
[2025-08-09 23:44] LABS: CPK CREATINE PHOSPHOKINASE 180.0 U/L (34-145); MB/CK RELATIVE INDEX 5.0 (< OR =4)
[2025-08-10 02:45] VITALS: BP 118/56; TEMP 97.8; O2SAT 94
== END 2025-08-10 02:54 | disposition short-term general hospital (02) ==
LOC: M ED 21:11
DX: I21.4 Non-ST elevation (NSTEMI) myocardial infarction (principal); I45.10 Unspecified right bundle-branch block; I10 Essential (primary) hypertension; I25.2 Old myocardial infarction; Z86.79 Personal history of other diseases of the circulatory system; Z91.040 Latex allergy status; Z79.02 Long term (current) use of antithrombotics/antiplatelets; Z79.4 Long term (current) use of insulin; Z79.899 Other long term (current) drug therapy
CPT/HCPCS: 71045; 71275; 80048; 82550; 82553; 83880; 84439; 84443; 84484; 85025; 85610; 85730; 93005; 93041; 94760; 96365; 96366; 96375; 96376; 99285; J2405; Q9967